=== PATIENT | female | born 1945 ===

== ENCOUNTER 2022-11-11 00:34 | Inpatient (IN) | payer BC ==
[~2022-11-11] VITALS: Ht 160 cm; Wt 44.3 kg
[2022-11-11] VITALS (7 sets, daily range): BP systolic 148–174; BP diastolic 70–94
[2022-11-11] MEDS ORDERED: ONDANSETRON HCL 4 MG/2 ML VIAL IV PRN (02:30)
[2022-11-11] MEDS ORDERED: NITROGLYCERIN 0.4 MG SL TAB SL PRN (02:30)
[2022-11-11] MEDS ORDERED: MORPHINE SULFATE INJ 2 MG/ml SYRG IV PRN (02:30)
[2022-11-11] MEDS ORDERED: DEXTROSE (50%) 50ML SYRG IV PRN (02:30)
[2022-11-11] MEDS ORDERED: ACETAMINOPHEN 325 MG TAB PO PRN (02:30)
[2022-11-11] MEDS: SODIUM CHLORIDE 0.9% 1,000 ML IV SCH ×3 (03:48→23:12)
[2022-11-11] MEDS: hydrALAZINE HCL 20 MG/ML VL IV PRN ×2 (04:08→10:53)
[2022-11-11 04:09] LABS: Urine Bacteria NONE SEEN /hpf (None Seen); Urine Blood Negative /uL (Negative); Urine Specific Gravity 1.013 (1.001-1.035); Urine WBC 2 /hpf (0 - 5)
[2022-11-11 04:21] LABS: Basophils # (auto) 0 10 ^3/uL (0-0.2); Basophils % (auto) 0.6 % (0.0-2.0); Eosinophils # (auto) 0 10 ^3/uL (0-0.8); Eosinophils % (auto) 0.5 % (0.0-7.0); Hematocrit 34.8 % (36.0-46.0); Hemoglobin 11.6 g/dL (12.2-16.2); Lymphocytes # (auto) 0.7 10 ^3/uL (0.4-5.4); Lymphocytes % (auto) 14.5 % (10.0-50.0); Mean Corpuscular Hemoglobin 28.9 pg (28.0-32.0); Mean Corpuscular Hgb Conc. 33.4 g/dL (32.0-36.0); Mean Corpuscular Volume 86.7 fL (80.0-100.0); Monocytes # (auto) 0.3 10 ^3/uL (0-1.3); Monocytes % (auto) 6.8 % (0.0-12.0); Neutrophils # (auto) 3.8 10 ^3/uL (1.6-8.6); Neutrophils % (auto) 77.6 % (37.0-80.0); Nucleated Red Blood Cells % 0.1 %; Red Blood Cells 4.01 10^6/uL (4.0-5.20); Red Cell Distribution Width 14.9 % (11.8-14.3); White Blood Cell 4.9 10^3/uL (4.4-10.8)
[2022-11-11 04:38] LABS: Calcium 7.6 mg/dL (8.5-10.1)
[2022-11-11 04:40] LABS: BUN/Creatinine Ratio 20.2 (10.0-20.0)
[2022-11-11 04:55] LABS: Potassium 2.5 mmol/L (3.5-5.1)
[2022-11-11] MEDS ORDERED: POTASSIUM EFFERVESENT TAB 25 MEQ PO ONE (06:30)
[2022-11-11] MEDS ORDERED: POTASSIUM CHL 20MEQ/100ML 100 ML IV ONE (06:30)
[2022-11-11] MEDS: ACCU-CHEK COMFORT CURVE STRIP VI SCH ×4 (06:52→22:48)
[2022-11-11] MEDS: InsuLIN REG 1unit/0.01ml Soln (100units/ml) SC SCH ×4 (06:53→23:08)
[2022-11-11] MEDS: cefTRIAXone 1GM/50ML D5W 50 ML IV SCH (10:38)
[2022-11-11] MEDS: ENOXAPARIN SOD 30 MG/0.3 ML SYRINGE SC SCH (10:38)
[2022-11-11] MEDS: PANTOPRAZOLE 40 MG/10 ML VIAL INJ IV SCH (10:38)
[2022-11-11] MEDS ORDERED: CYANOCOBALAMIN (B-12) 1000 MCG/1 ML VIAL IM ONE (15:45)
[2022-11-11 17:43] LABS: BUN/Creatinine Ratio 13.9 (10.0-20.0); Calcium 7.6 mg/dL (8.5-10.1); Magnesium 1.8 mg/dL (1.6-2.6)
[2022-11-11 17:54] LABS: Potassium 2.4 mmol/L (3.5-5.1)
[2022-11-11] MEDS ORDERED: POTASSIUM CHLORIDE 40 MEQ, LIDOCAINE 1% (LOCAL ANESTH.) 4 ML in SODIUM CHL 0.9% 250 ML IV ONE (18:15)
[2022-11-11] MEDS ORDERED: POTASSIUM CHL 20 Meq TABLET PO ONE (18:15)
[2022-11-11] MEDS: MAGNESIUM SULFATE 1GM/100ML 100 ML IV SCH ×2 (18:38→20:19)
[2022-11-11] MEDS: ATORVASTATIN 20 MG TAB PO SCH (22:48)
[2022-11-12] MEDS: hydrALAZINE HCL 20 MG/ML VL IV PRN (04:06)
[2022-11-12 05:00] VITALS: BP 159/84
[2022-11-12] MEDS: InsuLIN REG 1unit/0.01ml Soln (100units/ml) SC SCH ×4 (06:10→22:00)
[2022-11-12] MEDS: ACCU-CHEK COMFORT CURVE STRIP VI SCH ×4 (06:10→22:13)
[2022-11-12 06:38] LABS: Basophils # (auto) 0 10 ^3/uL (0-0.2); Basophils % (auto) 0.4 % (0.0-2.0); Eosinophils # (auto) 0 10 ^3/uL (0-0.8); Eosinophils % (auto) 0.5 % (0.0-7.0); Hematocrit 37.1 % (36.0-46.0); Hemoglobin 12.5 g/dL (12.2-16.2); Lymphocytes # (auto) 0.8 10 ^3/uL (0.4-5.4); Lymphocytes % (auto) 14.2 % (10.0-50.0); Mean Corpuscular Hemoglobin 29.4 pg (28.0-32.0); Mean Corpuscular Hgb Conc. 33.7 g/dL (32.0-36.0); Monocytes # (auto) 0.6 10 ^3/uL (0-1.3); Monocytes % (auto) 10.3 % (0.0-12.0); Neutrophils # (auto) 4.2 10 ^3/uL (1.6-8.6); Neutrophils % (auto) 74.6 % (37.0-80.0); Nucleated Red Blood Cells % 0.1 %; Red Blood Cells 4.27 10^6/uL (4.0-5.20); Red Cell Distribution Width 15.2 % (11.8-14.3); White Blood Cell 5.7 10^3/uL (4.4-10.8)
[2022-11-12 06:58] LABS: Chloride 112 mmol/L (98-107); Sodium 142 mmol/L (136-145)
[2022-11-12 07:03] LABS: Potassium 2.9 mmol/L (3.5-5.1)
[2022-11-12 07:13] LABS: Anion Gap 6 (5-15); BUN/Creatinine Ratio 12.7 (10.0-20.0); Blood Urea Nitrogen 7 mg/dL (7-18); Calcium 7.5 mg/dL (8.5-10.1); Carbon Dioxide 24 mmol/L (21-32); GFR African American 137 mL/min; GFR Non-African American 113 mL/min; Glucose 93 mg/dL (74-106); Magnesium 2.2 mg/dL (1.6-2.6)
[2022-11-12] MEDS: cefTRIAXone 1GM/50ML D5W 50 ML IV SCH (08:51)
[2022-11-12] MEDS: PANTOPRAZOLE 40 MG/10 ML VIAL INJ IV SCH (08:51)
[2022-11-12] MEDS: ENOXAPARIN SOD 30 MG/0.3 ML SYRINGE SC SCH (08:51)
[2022-11-12] MEDS: CYANOCOBALAMIN (B-12) 1000 MCG/1 ML VIAL SUBCUT SCH (08:52)
[2022-11-12] MEDS ORDERED: POTASSIUM CHL 20 Meq TABLET PO ONE (09:45)
[2022-11-12] MEDS ORDERED: POTASSIUM CHLORIDE 20 MEQ, LIDOCAINE 1% (LOCAL ANESTH.) 2 ML in SODIUM CHL 0.9% 100 ML IV ONE (09:45)
[2022-11-12 17:37] LABS: Albumin 2.7 g/dL (3.4-5.0); Calcium 7.5 mg/dL (8.5-10.1)
[2022-11-12 17:40] LABS: Bilirubin, Total 0.4 mg/dL (0.2-1.0); Total Protein 5.7 g/dL (6.4-8.2)
[2022-11-12 18:05] LABS: Potassium 2.9 mmol/L (3.5-5.1)
[2022-11-12] MEDS ORDERED: POTASSIUM CHLORIDE 80 MEQ, LIDOCAINE 1% (LOCAL ANESTH.) 6 ML in SODIUM CHL 0.9% 500 ML IV ONE (18:30)
[2022-11-12] MEDS ORDERED: POTASSIUM CHL 20MEQ/100ML 100 ML IV ONE ×3 (18:45)
[2022-11-12] MEDS: POTASSIUM CHL 20MEQ/100ML 100 ML IV SCH ×3 (18:46→23:34)
[2022-11-12 21:43] LABS: Potassium 3.7 mmol/L (3.5-5.1)
[2022-11-12 22:00] VITALS: BP 175/89
[2022-11-12] MEDS: ATORVASTATIN 20 MG TAB PO SCH (22:00)
[2022-11-12] MEDS: SODIUM CHLORIDE 0.9% 1,000 ML IV SCH (23:37)
[2022-11-13] MEDS: hydrALAZINE HCL 20 MG/ML VL IV PRN (00:08)
[2022-11-13] MEDS: POTASSIUM CHL 20MEQ/100ML 100 ML IV SCH (04:34)
[2022-11-13 05:00] VITALS: BP 153/72
[2022-11-13] MEDS: ACCU-CHEK COMFORT CURVE STRIP VI SCH ×4 (06:17→21:53)
[2022-11-13] MEDS: InsuLIN REG 1unit/0.01ml Soln (100units/ml) SC SCH ×4 (06:18→21:55)
[2022-11-13 06:23] LABS: Basophils # (auto) 0 10 ^3/uL (0-0.2); Basophils % (auto) 0.5 % (0.0-2.0); Eosinophils # (auto) 0 10 ^3/uL (0-0.8); Eosinophils % (auto) 0.7 % (0.0-7.0); Hematocrit 37.4 % (36.0-46.0); Hemoglobin 12.4 g/dL (12.2-16.2); Lymphocytes # (auto) 0.8 10 ^3/uL (0.4-5.4); Lymphocytes % (auto) 17.1 % (10.0-50.0); Mean Corpuscular Hemoglobin 28.6 pg (28.0-32.0); Mean Corpuscular Hgb Conc. 33.1 g/dL (32.0-36.0); Mean Corpuscular Volume 86.5 fL (80.0-100.0); Monocytes # (auto) 0.6 10 ^3/uL (0-1.3); Monocytes % (auto) 12.2 % (0.0-12.0); Neutrophils # (auto) 3.3 10 ^3/uL (1.6-8.6); Neutrophils % (auto) 69.5 % (37.0-80.0); Nucleated Red Blood Cells % 0.1 %; Red Blood Cells 4.32 10^6/uL (4.0-5.20); Red Cell Distribution Width 15.3 % (11.8-14.3); White Blood Cell 4.7 10^3/uL (4.4-10.8)
[2022-11-13 06:57] LABS: Potassium 3.4 mmol/L (3.5-5.1)
[2022-11-13 07:06] LABS: BUN/Creatinine Ratio 12.3 (10.0-20.0); Calcium 7.8 mg/dL (8.5-10.1)
[2022-11-13 08:12] VITALS: BP 160/102
[2022-11-13] MEDS: CYANOCOBALAMIN (B-12) 1000 MCG/1 ML VIAL SUBCUT SCH (09:32)
[2022-11-13] MEDS: ENOXAPARIN SOD 30 MG/0.3 ML SYRINGE SC SCH (09:33)
[2022-11-13] MEDS ORDERED: POTASSIUM CHL 20 Meq TABLET PO ONE (11:00)
[2022-11-13] MEDS: amLODIPine BESYLATE 5 MG TAB PO SCH (11:55)
[2022-11-13] MEDS: cefTRIAXone 1GM/50ML D5W 50 ML IV SCH (11:55)
[2022-11-13] MEDS ORDERED: ALEN70TA74 PO (13:33)
[2022-11-13] MEDS ORDERED: OMEP20TA PO (13:33)
[2022-11-13] MEDS ORDERED: DOCU-94 PO (13:33)
[2022-11-13] MEDS ORDERED: OXYB5TAB24 PO (13:33)
[2022-11-13] MEDS ORDERED: PRAV20TA3 PO (13:33)
[2022-11-13] MEDS ORDERED: METO25TA93 PO (13:33)
[2022-11-13] MEDS ORDERED: CHOL20007 OR (13:33)
[2022-11-13] MEDS ORDERED: NIFE90TA75 PO (13:33)
[2022-11-13] MEDS ORDERED: DONE5TAB80 PO (13:33)
[2022-11-13] MEDS ORDERED: LOSA100T58 PO (13:33)
[2022-11-13] MEDS ORDERED: ALENDRONATE SODIUM 10 MG TAB PO SCH (14:00)
[2022-11-13 14:09] VITALS: BP 129/60
[2022-11-13] MEDS: DOCUSATE SOD 100 MG CAP PO SCH (21:53)
[2022-11-13] MEDS: ATORVASTATIN 20 MG TAB PO SCH (21:53)
[2022-11-13 22:00] VITALS: BP 148/83
[2022-11-14 05:00] VITALS: BP 156/76
[2022-11-14] MEDS: InsuLIN REG 1unit/0.01ml Soln (100units/ml) SC SCH ×2 (06:13→11:30)
[2022-11-14] MEDS: ACCU-CHEK COMFORT CURVE STRIP VI SCH ×2 (06:14→11:30)
[2022-11-14 06:18] LABS: Basophils # (auto) 0 10 ^3/uL (0-0.2); Basophils % (auto) 0.5 % (0.0-2.0); Eosinophils # (auto) 0.1 10 ^3/uL (0-0.8); Eosinophils % (auto) 2.1 % (0.0-7.0); Hematocrit 36.2 % (36.0-46.0); Hemoglobin 11.9 g/dL (12.2-16.2); Mean Corpuscular Hemoglobin 28.9 pg (28.0-32.0); Mean Corpuscular Hgb Conc. 32.7 g/dL (32.0-36.0); Mean Corpuscular Volume 88.3 fL (80.0-100.0); Monocytes # (auto) 0.6 10 ^3/uL (0-1.3); Monocytes % (auto) 12.6 % (0.0-12.0); Neutrophils % (auto) 63.8 % (37.0-80.0); Nucleated Red Blood Cells % 0.1 %; Red Cell Distribution Width 15.2 % (11.8-14.3); White Blood Cell 4.6 10^3/uL (4.4-10.8)
[2022-11-14 06:24] LABS: Potassium 3.3 mmol/L (3.5-5.1)
[2022-11-14 06:31] LABS: BUN/Creatinine Ratio 21.6 (10.0-20.0); Calcium 8.1 mg/dL (8.5-10.1)
[2022-11-14 09:00] VITALS: BP 144/116
[2022-11-14] MEDS: cefTRIAXone 1GM/50ML D5W 50 ML IV SCH (09:38)
[2022-11-14] MEDS: DOCUSATE SOD 100 MG CAP PO SCH (09:39)
[2022-11-14] MEDS: ENOXAPARIN SOD 30 MG/0.3 ML SYRINGE SC SCH (09:39)
[2022-11-14] MEDS: CYANOCOBALAMIN (B-12) 1000 MCG/1 ML VIAL SUBCUT SCH (09:42)
[2022-11-14] MEDS ORDERED: OXYBUTYNIN CHLORIDE 10 MG PO SCH (10:00)
[2022-11-14] MEDS ORDERED: DONEPEZIL HYDROCHLORIDE 5 MG TAB PO SCH (10:00)
[2022-11-14] MEDS: amLODIPine BESYLATE 5 MG TAB PO SCH (10:13)
[2022-11-14 13:00] VITALS: BP 151/93
[2022-11-14] MEDS ORDERED: CIPR250T3 PO (13:12)
[2022-11-14] MEDS ORDERED: LOSARTAN POTASSIUM 50 MG TAB PO ONE (13:15)
[2022-11-15] MEDS ORDERED: LOSARTAN POTASSIUM 50 MG TAB PO SCH (10:00)
== END 2022-11-14 15:00 | disposition home health service (06) | DRG 71 ==
LOC: TELE-WESTW 01:33 → UNDOADMIN 01:33 → TELE-WESTW 02:38 → OBSVTOIN 11-12 10:32
PROVIDERS: ADMIT Hospitalist; ATTEND Hospitalist
DX: G93.41 Metabolic encephalopathy (principal); N17.9 Acute kidney failure, unspecified; N39.0 Urinary tract infection, site not specified; E87.6 Hypokalemia; D64.9 Anemia, unspecified; E11.65 Type 2 diabetes mellitus with hyperglycemia; I10 Essential (primary) hypertension; E78.5 Hyperlipidemia, unspecified; Z86.73 Personal history of transient ischemic attack (TIA), and cerebral infarction without residual deficits; Z91.83 Wandering in diseases classified elsewhere
CPT/HCPCS: 36415; 80048; 80053; 81001; 82607; 82962; 83735; 84132; 85025; 87040; 87086; 93306; 97110; 97116; 97163; 97530; C9113; G0378; J0696; J1815; J2001; J3480